=== PATIENT | female | born 1995 | race Two or more races ===

== ENCOUNTER 2022-09-24 19:18 | Emergency (ER) | payer MEDICAID, OTHER ==
[~2022-09-24] VITALS: Ht 144.8 cm; Wt 77.0 kg
[2022-09-24] MEDS ORDERED: ALBUTEROL MEDNEB 2.5 mg/3ml NEB ONE (19:43)
[2022-09-24] MEDS ORDERED: DexAMETHasone SOD PHOS 10MG/1ML VIAL INJ IM ONE (19:45)
[2022-09-24] MEDS ORDERED: IPRATROPIUM BROM 0.5 MG/2.5ML INH SOL NEB ONE (19:45)
[2022-09-24] MEDS ORDERED: ALBUTEROL SULF 2.5 MG/0.5ML(0.5%) NEB SOLN NEB ONE (19:45)
[2022-09-25] MEDS ORDERED: ALBU108A5 IN (00:48)
[2022-09-25] MEDS ORDERED: LORA-483 GT (00:48)
[2022-09-25] MEDS ORDERED: BENZ100C19 PO (00:48)
[2022-09-25 02:16] VITALS: BP 131/93
== END 2022-09-25 00:48 | disposition home or self-care (01) ==
LOC: ER 19:21
DX: J06.9 Acute upper respiratory infection, unspecified (principal); E66.01 Morbid (severe) obesity due to excess calories; Z68.36 Body mass index [BMI] 36.0-36.9, adult
CPT/HCPCS: 71045; 94640; 96372; 99283; J1100; J7644